=== PATIENT | male | born 1950 | race Caucasian/White ===

== ENCOUNTER 2021-08-04 14:32 | Observation (INO) ==
[2021-08-04] MEDS ORDERED: Ipratropium/Albuterol Neb 3 ML IH ONE (15:05)
[2021-08-04] MEDS ORDERED: methylPREDNISolone 125 MG/2 ML VIAL IVP ONE (15:05)
[2021-08-04 15:20] LABS: Basophils # 0.1 K/mcL (0.0-0.2); Basophils % 0.8 %; Eosinophils # 0.2 K/mcL (0.0-0.6); Hematocrit 49.7 % (37.5-50.1); Hemoglobin 16.8 g/dL (12.9-16.9); Immature Granulocytes % 1.6 % (0-4); Lymphocytes # 1.8 K/mcL (0.6-4.6); Lymphocytes % 18.1 %; Mean Corpuscular HGB Conc 33.8 g/dL (31.6-35.5); Mean Corpuscular Hemoglobin 32.2 pg (28.0-33.3); Mean Corpuscular Volume 95.2 fL (83.0-100.0); Mean Platelet Volume 9.8 fL (9.4-12.4); Monocytes # 0.9 K/mcL (0.0-1.3); Monocytes % 8.9 %; Neutrophils # 6.8 K/mcL (1.6-8.9); Platelet Count 346 K/mcL (140-400); Red Blood Count 5.22 M/mcL (4.19-5.50); Red Cell Distribution Width 12.4 % (11.5-14.5); Segmented Neutrophils % 68.6 %; White Blood Count 9.9 K/mcL (4.3-11.1)
[2021-08-04 15:40] LABS: BUN/Creatinine Ratio 24 (6-26); Blood Urea Nitrogen 22 mg/dL (8-23); Calcium 9.1 mg/dL (8.6-10.3); Carbon Dioxide 29 mEq/L (23-29); Chloride 100 mEq/L (98-107); Glucose 117 mg/dL (70-105); Osmolality,Calculated 288 (280-300); Potassium 4.4 mEq/L (3.5-5.1); Sodium 137 mEq/L (136-145); eGFR For African Americans > 60 (> 60); eGFR For Non-African Americans > 60 (> 60)
[2021-08-04 15:41] LABS: Troponin I < 0.03 ng/mL (< 0.04)
[2021-08-04] MEDS ORDERED: Isovue-370 500 ML BOTTLE IVP ONE (17:00)
[2021-08-04] MEDS ORDERED: Ondansetron 4 MG/2 ML VIAL IVP PRN (17:45)
[2021-08-04] MEDS ORDERED: Melatonin 3 MG TABLET PO PRN (17:45)
[2021-08-04] MEDS ORDERED: Naloxone 0.4 MG/ML INJ IVP PRN (17:45)
[2021-08-04] MEDS ORDERED: Acetaminophen 325 MG TABLET PO PRN (18:17)
[2021-08-04 18:51] LABS: Adenovirus Not Detected (Not Detect); Bordetella Pertussis Not Detected (Not Detect); Chlamydophila pneumoniae Not Detected (Not Detect); Coronavirus 229E Not Detected (Not Detect); Coronavirus HKU1 Not Detected (Not Detect); Coronavirus NL63 Not Detected (Not Detect); Coronavirus OC43 Not Detected (Not Detect); Human Metapneumovirus Not Detected (Not Detect); Human Rhinovirus/Enterovirus Not Detected (Not Detect); Influenza A Subtype 2009 H1 Not Detected (Not Detect); Influenza B Not Detected (Not Detect); Mycoplasma pneumoniae Not Detected (Not Detect); Parainfluenza Virus 1 Not Detected (Not Detect); Parainfluenza Virus 2 Not Detected (Not Detect); Parainfluenza Virus 3 Not Detected (Not Detect); Parainfluenza Virus 4 Not Detected (Not Detect); Respiratory Syncytial Virus Not Detected (Not Detect); SARS-CoV-2 Not Detected (Not Detect)
[2021-08-04] MEDS ORDERED: cefTRIAXone 2,000 MG in 0.9 % Sodium Chloride Mini Bag 100 ML IVP SCH (19:00)
[2021-08-04] MEDS ORDERED: cefTRIAXone 1,000 MG in Water for inj. (sterile) 10 ML IVP SCH (19:00)
[2021-08-04] MEDS: Budesonide/Formoterol 160/4.5 1 PUFF INH IH SCH (19:47)
[2021-08-04] MEDS: Azithromycin 250 MG TABLET PO SCH (20:27)
[2021-08-05 02:11] LABS: Basophils % 0.3 %; Hematocrit 46.2 % (37.5-50.1); Hemoglobin 15.8 g/dL (12.9-16.9); Lymphocytes # 0.9 K/mcL (0.6-4.6); Mean Corpuscular HGB Conc 34.2 g/dL (31.6-35.5); Mean Corpuscular Hemoglobin 32.3 pg (28.0-33.3); Mean Corpuscular Volume 94.5 fL (83.0-100.0); Mean Platelet Volume 9.8 fL (9.4-12.4); Monocytes # 0.1 K/mcL (0.0-1.3); Monocytes % 1.4 %; Neutrophils # 5.8 K/mcL (1.6-8.9); Platelet Count 320 K/mcL (140-400); Red Blood Count 4.89 M/mcL (4.19-5.50); Red Cell Distribution Width 12.3 % (11.5-14.5); Segmented Neutrophils % 83.3 %; White Blood Count 6.9 K/mcL (4.3-11.1)
[2021-08-05 02:26] LABS: BUN/Creatinine Ratio 22 (6-26); Blood Urea Nitrogen 19 mg/dL (8-23); Calcium 8.7 mg/dL (8.6-10.3); Carbon Dioxide 28 mEq/L (23-29); Chloride 101 mEq/L (98-107); Glucose 150 mg/dL (70-105); Osmolality,Calculated 291 (280-300); Potassium 4.5 mEq/L (3.5-5.1); Sodium 138 mEq/L (136-145); eGFR For African Americans > 60 (> 60); eGFR For Non-African Americans > 60 (> 60)
[2021-08-05] MEDS ORDERED: *HR* Enoxaparin 40 MG/0.4 ML SYRINGE SQ SCH (06:00)
[2021-08-05 07:36] VITALS: BP 126/73; PULSE 76; TEMP 97.4
[2021-08-05] MEDS: Azithromycin 250 MG TABLET PO SCH (07:52)
[2021-08-05] MEDS: Budesonide/Formoterol 160/4.5 1 PUFF INH IH SCH (08:32)
[2021-08-05 10:22] VITALS: O2SAT 96
== END 2021-08-05 16:32 | disposition home or self-care (01) ==
LOC: 3BNU 14:32 → EMEROOARM 14:32 → 3BNU 18:45
PROVIDERS: ADMIT Internal Medicine; ATTEND Internal Medicine